=== PATIENT | female | born 1980 | race Caucasian/White ===

== ENCOUNTER 2020-10-29 10:34 | Emergency (ER) | payer BC ==
[~2020-10-29] VITALS: Ht 157.5 cm; Wt 63.5 kg
[2020-10-29] MEDS ORDERED: SKELAXIN800 MG PO (17:11)
[2020-10-29] MEDS ORDERED: ULTRAM50 MG PO (17:11)
[2020-10-29] MEDS ORDERED: KETO10TA2 PO (17:11)
[2020-11-13] MEDS ORDERED: ACETAMINOPHEN500 M1 (10:03)
== END 2020-10-29 17:23 | disposition home or self-care (01) ==
LOC: ER 10:34
DX: S33.5XXA Sprain of ligaments of lumbar spine, initial encounter (principal); M62.830 Muscle spasm of back; X50.0XXA Overexertion from strenuous movement or load, initial encounter; Y93.B2 Activity, push-ups, pull-ups, sit-ups; Y92.012 Bathroom of single-family (private) house as the place of occurrence of the external cause; Y99.8 Other external cause status